=== PATIENT | male | born 1985 | race Caucasian/White ===

== ENCOUNTER 2025-04-03 00:14 | Day surgery (SDC) | payer OTHER, SELFPAY ==
[2024-12-11 15:06] VITALS: BMI 34.0
--- NOTE | 2025-03-24 09:21 | PC.NURSE ---
Spoke with patient in regards to rescheduled EGD. Updated patient with new procedure date and times. No questions at this time. Patient denies changes to health history.
[2025-04-03 06:39] VITALS: BP 138/99; PULSE 70; RESP 16; TEMP 36.5; O2SAT 100; BMI 33.7
[2025-04-03] MEDS: LACTATED RINGERS 1,000 ML 150 ML IV CONT (06:53)
[2025-04-03] MEDS: SIMETHICONE ORAL SUSPENSION 20 MG/0.3 ML 30 ML BOTTLE 1.8 ML PO (07:10)
--- NOTE | 2025-04-03 07:10 | WPDANESEPPF ---
Anes - Initial Pre Proc Eval Procedure: Operation Date: 04/03/25 08:00 Proposed Procedures p Esophagogastroduodenoscopy - Cortez Shah MD Date/Time: 04/03/25 07:10 Surgeon: Cortez Shah MD Pre Op Diagnosis: Family history of malignant neoplasm of digestive Patient Data Age: 39 Gender: M Height: 1.83 m Weight: 113 kg Last Vital Signs Temp 36.5 C 04/03/25 06:39 Pulse 70 04/03/25 06:39 Resp 16 04/03/25 06:39 BP 138/99 H 04/03/25 06:39 Pulse Ox 100 04/03/25 06:39 O2 Del Method Room Air 04/03/25 06:39 Allergies Allergy/AdvReac Type Severity Reaction Status Date / Time Penicillins AdvReac Severe Unknown Verified 04/03/25 06:38 Home Medications ?Medication ?Instructions ?Recorded ?Confirmed ?Type cholecalciferol (vitamin D3) 125 125 mcg PO DAILY 09/04/24 04/03/25 History mcg (5,000 unit) capsule ergocalciferol (vitamin D2) 1,250 1,250 mcg PO WEEKLY #12 caps 09/04/24 12/11/24 Rx mcg (50,000 unit) capsule Patient hx anesthesia problems: none Family hx anesthesia problems: none Results Review: All pre-operative results and documents have been reviewed as part of the pre-operative evaluation. [facility] Past Medical History Medical History (Updated 10/01/24 @ 09:50 by Philomena Marquez, EDUCATIONAL DIAGNOSTICIAN-C) Former smoker Gastritis and duodenitis Esophageal stricture FH: pancreatic cancer pat gpa in his 70's FH: stomach cancer dad at 43 y/o GERD (gastroesophageal reflux disease) Dyslipidemia Vitamin D deficiency Hemorrhoids Surgical History Surgical History Hx of cholecystectomy Social History Social History Smoking status: Former smoker ( Chews tobacco, smoked 1 ppd 15 years, quit 2009) Smokeless tobacco user: chewing tobacco Alcohol intake: current Drinks per week: 3 Substance use: never Substance use type: does not use Lack of Transportation: No Lack of Food: Never True Current Housing: I Have Housing Concerned About Future Housing: No Difficulty Paying Gas/Electric Bills: No Difficulty Paying for Meds: No Currently Unemployed: No Difficulty w/ Childcare or Family Care: No Living arrangements: with family Occupation/Education: occupation Gender identity (if verbalized by the patient): Male Sexual Orientation (if Verbalized by the Patient): Straight or Heterosexual Spiritual care concerns: No Anes - Eval Final PreProcedure Day of Procedure 04/03/25 07:10 Patient weight: obese Heart: regular rate and rhythm Lungs: clear to auscultation Airway: Mallampati scale class II Neurological: alert and oriented Last oral intake: >/= 8 hours ASA classification: III Emergent: no Anesthetic plan: proceed Anesthesia type and monitoring: general GIVS and standard monitoring Results Review: All pre-operative results and documents have been reviewed as part of the pre-operative evaluation. Informed Consent: The patient's anesthetic plan and its attendant risks and benefits were discussed with the patient/family/POA. Questions were solicited and answers provided to the satisfaction of the patient/family/POA.
--- NOTE | 2025-04-03 07:49 | PM.IMHP ---
H&P: HPI History of Present Illness Date/Time: 04/03/25 07:49 Chief Complaint: Dysphagia Narrative: this patient has a history of dysphagia 5 years ago, which was treated with esophageal dilatation. He did well and approximately 3 months ago he started to have dysphagia episodes again. He also endorses a history of frequent heartburn which is partially controlled with omeprazole. There is no unintentional weight loss, nausea or vomiting. Review of Systems Review of Systems: All systems reviewed & are unremarkable except as noted in HPI and below [facility] Past Medical History Medical History (Updated 10/01/24 @ 09:50 by ARMANI Amezcua) Former smoker Gastritis and duodenitis Esophageal stricture FH: pancreatic cancer pat gpa in his 70's FH: stomach cancer dad at 43 y/o GERD (gastroesophageal reflux disease) Dyslipidemia Vitamin D deficiency Hemorrhoids Surgical History Surgical History Hx of cholecystectomy Social History Social History Smoking status: Former smoker ( Chews tobacco, smoked 1 ppd 15 years, quit 2009) Smokeless tobacco user: chewing tobacco Alcohol intake: current Drinks per week: 3 Substance use: never Substance use type: does not use Lack of Transportation: No Lack of Food: Never True Current Housing: I Have Housing Concerned About Future Housing: No Difficulty Paying Gas/Electric Bills: No Difficulty Paying for Meds: No Currently Unemployed: No Difficulty w/ Childcare or Family Care: No Living arrangements: with family Occupation/Education: occupation Gender identity (if verbalized by the patient): Male Sexual Orientation (if Verbalized by the Patient): Straight or Heterosexual Spiritual care concerns: No Meds Home Medications and Allergies Home Medications ?Medication ?Instructions ?Recorded ?Confirmed ?Type cholecalciferol (vitamin D3) 125 125 mcg PO DAILY 09/04/24 04/03/25 History mcg (5,000 unit) capsule ergocalciferol (vitamin D2) 1,250 1,250 mcg PO WEEKLY #12 caps 09/04/24 12/11/24 Rx mcg (50,000 unit) capsule Allergies Allergy/AdvReac Type Severity Reaction Status Date / Time Penicillins AdvReac Severe Unknown Verified 04/03/25 06:38 Vital Signs Vital Signs - 24 hr 04/03/25 06:39 Temperature 97.7 F Pulse Rate 70 Respiratory Rate 16 Blood Pressure 138/99 H Pulse Oximetry 100 Oxygen Delivery Room Air Exam Const: General: cooperative and healthy appearing Resp: Effort & Inspection: normal respiratory effort and able to speak in complete sentences Auscultation: clear to auscultation bilaterally Cardio: Rate: regular rate Rhythm: regular rhythm GI: Inspection: normal to inspection GI Palp: No No hepatosplenomegaly present Auscultation: normal bowel sounds Rectal Exam: deferred Skin: General skin exam: normal color Psych: Appearance: grossly normal Mental Status: mental status grossly normal Assessment and Plan Assessment and plan (1) Esophageal stricture: Code(s): K22.2 - Esophageal obstruction Status: Acute Assessment and Plan: The patient is deemed a good candidate for the procedure. Consent signed. Will proceed.
[2025-04-03] MEDS: BENZOCAINE (*SP) 60 ML SPRAY CAN (HURRICAINE) 1 SPRAY MUCOUS MEM (07:51)
--- NOTE | 2025-04-03 07:57 | S_PTH ---
PATIENT: Christian Cano LOC: [address]#:[id number] AGE/SX: 39/M ROOM: RE04/03/[address]: Cortez Shah MD : 1985 BED: DIS: 04/03/2025 SPEC #: [id number] RECD: 04/03/25 09:24 STATUS: ANIYA REAldair #: [id number] KERI: 04/03/25 07:[address]: Cortez Shah DEPT: [facility] Surgical RECD BY: Britney lAves ENTERED: 04/03/25 09:25 SP TYPE: Surgical OTHR DR: Sue Jade PA-C Tissues: A - Gastric Biopsy B - Gastric Biopsy C - Esophageal Biopsy Procedures: P63 Hematoxylin and Eosin Stain Gross and Microscopic Level 4 Mib
[2025-04-03 08:10] VITALS: BP 119/86; PULSE 86; RESP 24; O2SAT 96
[2025-04-03 08:20] VITALS: BP 125/86; PULSE 74; RESP 22; O2SAT 97
[2025-04-03 08:30] VITALS: BP 137/95; PULSE 70; RESP 19; O2SAT 98
== END 2025-04-03 08:40 | disposition home or self-care (01) ==
PROVIDERS: PCP Physician Assistant Medical; Referring Provider Nurse Practitioner Family; Visit Provider Internal Medicine Gastroenterology
PROC: 0DJ08ZZ Inspection of Upper Intestinal Tract, Via Natural or Artificial Opening Endoscopic (ICD-10-PCS; CPT 43239; principal; 2025-04-03 08:00)
DX: K21.00 Gastro-esophageal reflux disease with esophagitis, without bleeding (principal); K29.51 Unspecified chronic gastritis with bleeding; K29.80 Duodenitis without bleeding; E78.5 Hyperlipidemia, unspecified; E55.9 Vitamin D deficiency, unspecified; F17.220 Nicotine dependence, chewing tobacco, uncomplicated; E66.9 Obesity, unspecified; Z68.33 Body mass index [BMI] 33.0-33.9, adult; Z90.49 Acquired absence of other specified parts of digestive tract; Z87.19 Personal history of other diseases of the digestive system; Z80.0 Family history of malignant neoplasm of digestive organs
CPT/HCPCS: 43239; 88305; 88342; J2003; J2704; J7120